=== PATIENT | female | born 1950 ===

== ENCOUNTER 2022-03-05 10:43 | Outpatient (CLI) | payer MEDICARE | END 2022-03-05 10:44 | disposition home or self-care (01) | LOC: BICMAMMO 10:43 | PROVIDERS: ATTEND Student in an Organized Health Care Education/Training Program | DX: Z13.820 Encounter for screening for osteoporosis (principal); N95.9 Unspecified menopausal and perimenopausal disorder; M85.89 Other specified disorders of bone density and structure, multiple sites | CPT/HCPCS: 77080 ==